=== PATIENT | female | born 1990 | race Caucasian/White ===

== ENCOUNTER 2018-04-16 23:58 | Emergency (ER) | payer OTHER ==
[~2018-04-16] VITALS: Ht 165.1 cm; Wt 80.7 kg
[~2018-04-16 23:58] MED LIST: BIRTH CONTROL; CEPH500 PO; CITA20 PO; CYCL10 PO; Cleocin HCl150 MG PO; HYDACE5 PO; NAPR375 PO; Percocet 5-3251 EACH PO
[2018-04-17] MEDS ORDERED: AMIT75 PO (00:14)
[2018-04-17 02:25] LABS: Alanine Aminotransfer (ALT/SGP 21 U/L (12-78); Albumin, Blood 3.6 g/dL (3.4-5.0); Albumin/Globulin Ratio 0.9 (0.8-1.8); Alk Phos 65 U/L (50-136); Anion Gap 7 mmol/L (6-16); Aspartate Aminotrans (AST/SGOT 17 U/L (12-37); Bilirubin, Total 0.1 mg/dL (0.1-1.0); Blood Urea Nitrogen 10 mg/dL (8-24); Bun/Creatinine Ratio 13.3 (12.0-20.0); CO2, Blood 25 mmol/L (21-32); Calcium, Blood 8.6 mg/dL (8.5-10.1); Chloride, Blood 106 mmol/L (98-108); Creatinine, Blood 0.75 mg/dL (0.40-1.00); Globulin, Blood 4.1 g/dL (2.2-4.0); Glomerular Filtration Rate >60 (60-); Glucose, Blood 112 mg/dL (70-99); Potassium, Blood 3.5 mmol/L (3.5-5.5); Sodium, Blood 138 mmol/L (136-145); Total Protein, Blood 7.7 g/dL (6.4-8.2); Troponin I <0.015 ng/mL (0.000-0.040)
[2018-04-17 02:32] LABS: BASOPHILS ABSOLUTE AUTO 0.04 K/mm3 (0.00-0.23); BASOPHILS PERCENT AUTO 1 % (0-2); EOSINOPHILS ABSOLUTE AUTO 0.02 K/mm3 (0.00-0.68); EOSINOPHILS PERCENT AUTO 0 % (0-6); Hematocrit 37.4 % (33.0-51.0); Hemoglobin 11.5 g/dL (11.5-16.0); IMMATURE GRAN ABSOLUTE AUTO 0.03 K/mm3 (0.00-0.10); IMMATURE GRAN PERCENT AUTO 1 % (0-1); LYMPHOCYTES ABSOLUTE AUTO 0.53 K/mm3 (0.84-5.20); LYMPHOCYTES PERCENT AUTO 10 % (21-46); MONOCYTES ABSOLUTE AUTO 0.72 K/mm3 (0.16-1.47); MONOCYTES PERCENT AUTO 14 % (4-13); Mean Corpuscular HGB 25.7 pg (26.0-34.0); Mean Corpuscular HGB Conc 30.7 g/dL (31.5-36.5); Mean Corpuscular Volume 84 fL (80-100); Mean Platelet Volume 10.6 fL (9.1-12.4); NEUTROPHILS ABSOLUTE AUTO 4.01 K/mm3 (1.96-9.15); NEUTROPHILS PERCENT AUTO 75 % (41-73); Platelet Count 291 K/mm3 (150-400); RDW Coefficient Variation 16.1 % (11.7-14.2); RDW Standard Deviation 49.4 fL (35.1-46.3); Red Blood Cell Count 4.47 M/mm3 (3.80-5.20); White Blood Cell Count 5.35 K/mm3 (4.00-11.30)
== END 2018-04-17 03:30 | disposition home or self-care (01) ==
LOC: ER 23:58
PROVIDERS: Emergency Medicine
DX: R00.2 Palpitations (principal); Z88.0 Allergy status to penicillin; Z88.2 Allergy status to sulfonamides; Z88.1 Allergy status to other antibiotic agents; Z88.8 Allergy status to other drugs, medicaments and biological substances; Z79.899 Other long term (current) drug therapy
CPT/HCPCS: 36415; 71046; 80053; 84484; 85025; 85379; 93005; 93010; 99285-25

== ENCOUNTER 2018-04-21 10:31 | Emergency (ER) | payer OTHER ==
[~2018-04-21] VITALS: Ht 165.1 cm; Wt 80.7 kg
[~2018-04-21 10:31] MED LIST changes: +AMIT75 PO
== END 2018-04-21 11:50 | disposition home or self-care (01) ==
LOC: ER 10:31
DX: J02.9 Acute pharyngitis, unspecified (principal); Z88.2 Allergy status to sulfonamides; Z88.0 Allergy status to penicillin; Z88.1 Allergy status to other antibiotic agents; Z88.8 Allergy status to other drugs, medicaments and biological substances; Z79.899 Other long term (current) drug therapy
CPT/HCPCS: 87081; 87430; 96374; 99283-25; J1100

== ENCOUNTER 2023-07-24 06:33 | Day surgery (SDC) | payer OTHER ==
[~2023-07-24] VITALS: Ht 165.1 cm; Wt 79.6 kg
[2023-07-24] VITALS (17 sets, daily range): BP systolic 106–146; BP diastolic 73–97
[~2023-07-24 06:33] MED LIST changes: +Clindamycin 600mg in D5W 50 ML IV SCH; +Lactated Ringer's 1,000 ML IV SCH; +LevoFLOXacin 500MG/D5W 100ML 100 ML IV SCH
[2023-07-24] MEDS ORDERED: SERT100 PO (07:05)
[2023-07-24] MEDS ORDERED: BUPROPION XL450 MG PO (07:05)
[2023-07-24] MEDS ORDERED: Lidocaine HCl 2% 20 ML MDV ONE (07:24)
[2023-07-24] MEDS ORDERED: propofoL 20 ML IV ONE (07:24)
[2023-07-24] MEDS ORDERED: FentaNYL Citrate 50 MCG/ML 2 ML Injection ONE ×3 (07:25→10:32)
[2023-07-24] MEDS ORDERED: Rocuronium Bromide 10 MG/ML 5ML Injection IV ONE ×3 (07:26→10:34)
[2023-07-24] MEDS ORDERED: Lidocaine 2%-Epineph 1:200000 20 ML SDV ONE (07:30)
[2023-07-24] MEDS ORDERED: Lidocaine HCl 1% 5 ML SYR INJ ONE (07:35)
[2023-07-24] MEDS ORDERED: FentaNYL Citrate 50 MCG/ML 2 ML Injection IV PRN ×3 (07:35→10:20)
[2023-07-24] MEDS ORDERED: Midazolam HCl 1MG / ML 2ML Vial IV ONE (07:35)
[2023-07-24] MEDS ORDERED: HYDROmorphone HCl/Pf 1MG SYR IV PRN (07:40)
[2023-07-24] MEDS ORDERED: Metoclopramide HCl 5MG / ML 2ML Vial IV PRN (07:40)
[2023-07-24] MEDS ORDERED: Scopolamine Hydrobromide Patch TOP ONE (07:45)
[2023-07-24] MEDS ORDERED: Scopolamine Hydrobromide Patch ONE (07:54)
--- NOTE | 2023-07-24 07:59 | NUR ---
0645 AMBULATE TO [facility] CONFIRMED SURGERY AND SURGEON. LUNGS CLEAR. PRE OP TEACHING DONE, FAMILY AT BED SIDE
[2023-07-24] MEDS ORDERED: Ondansetron HCl 2 MG / ML 2ML Vial ONE (08:22)
[2023-07-24] MEDS ORDERED: Dexamethasone Sod Phos 10 MG/ML 1ML VIAL ONE (08:22)
[2023-07-24] MEDS ORDERED: Metoclopramide HCl 5MG / ML 2ML Vial ONE (08:29)
[2023-07-24] MEDS ORDERED: Sugammadex Sodium 200 MG/2ML SDV (100 MG/ML) ONE (09:38)
[2023-07-24] MEDS ORDERED: Ketorolac Tromethamine 30mg Vial ONE (09:42)
[2023-07-24] MEDS ORDERED: Flumazenil 0.1 MG / ML 5ML Vial ONE (09:58)
[2023-07-24] MEDS ORDERED: Acetaminophen 325 MG TABLET PO PRN (10:20)
[2023-07-24] MEDS ORDERED: DiphenhydrAMINE HCL 25 MG Cap PO PRN (10:20)
[2023-07-24] MEDS ORDERED: Simethicone 80 MG Chew PO PRN (10:20)
[2023-07-24] MEDS ORDERED: Ondansetron HCl 2 MG / ML 2ML Vial IV PRN (10:20)
[2023-07-24] MEDS ORDERED: OxyCODONE HCL 5 MG TAB PO PRN (10:20)
[2023-07-24] MEDS ORDERED: Lactated Ringer's 1,000 ML IV SCH (10:25)
[2023-07-24] MEDS ORDERED: Ibuprofen 400 MG Tab PO PRN (10:25)
[2023-07-24] MEDS ORDERED: Ketorolac Tromethamine 30mg Vial IV SCH ×2 (12:00→15:30)
[2023-07-24 13:11] LABS: BASOPHILS ABSOLUTE AUTO 0.03 K/mm3 (0.00-0.23); BASOPHILS PERCENT AUTO 0 % (0-2); EOSINOPHILS ABSOLUTE AUTO 0.01 K/mm3 (0.00-0.68); EOSINOPHILS PERCENT AUTO 0 % (0-6); Hematocrit 34.6 % (33.0-51.0); Hemoglobin 11.6 g/dL (11.5-16.0); IMMATURE GRAN ABSOLUTE AUTO 0.05 K/mm3 (0.00-0.10); IMMATURE GRAN PERCENT AUTO 0 % (0-1); LYMPHOCYTES ABSOLUTE AUTO 0.64 K/mm3 (0.84-5.20); LYMPHOCYTES PERCENT AUTO 5 % (21-46); MONOCYTES ABSOLUTE AUTO 0.42 K/mm3 (0.16-1.47); MONOCYTES PERCENT AUTO 3 % (4-13); Mean Corpuscular HGB 30.4 pg (26.0-34.0); Mean Corpuscular HGB Conc 33.5 g/dL (31.5-36.5); Mean Corpuscular Volume 91 fL (80-100); Mean Platelet Volume 9.5 fL (9.1-12.4); NEUTROPHILS ABSOLUTE AUTO 12.41 K/mm3 (1.96-9.15); NEUTROPHILS PERCENT AUTO 92 % (41-73); Platelet Count 246 K/mm3 (150-400); RDW Coefficient Variation 12.9 % (11.7-14.2); Red Blood Cell Count 3.82 M/mm3 (3.80-5.20); White Blood Cell Count 13.56 K/mm3 (4.00-11.30)
--- NOTE | 2023-07-24 13:41 | NUR ---
Pt. is resting in her room but responds when I enter. Pt. displays evidence of still recovering from her procedure. Pts. hanna' and mom are at bedside. Facilitate a short life review and consider matters of family and crescencio. Pt. displays evidence of awareness and engagement though she still displays evidence of discomfort. Prayed for Pt. Pt. and family verbalized gratitude for the spiritual care visit.
--- NOTE | 2023-07-24 14:08 | NUR ---
PT IS CONTINUING TO REPORT NAUSEA AND UNABLE TO TOLERATE MORE THAN SIPS OF WATER. MESSAGE LEFT FOR DR. LOUISE. WAITING FOR RETURN CALL.
[2023-07-24] MEDS ORDERED: Percocet 5-3251 EACH PO (15:06)
[2023-07-24] MEDS ORDERED: IBU800 MG PO (15:07)
--- NOTE | 2023-07-24 20:25 | NUR ---
SHIFT SUMMARY PT IS POD#0 FROM [facility] WITH DR. LOUISE. PAIN MANAGED WITH PO AND IV PAIN MEDICATION. PT HAS BEEN NAUSEATED T/O THE DAY AND ONLY ABLE TO SIP CLEAR LIQUIDS, EAT SOME JELLO AND SOME SALTINE CRACKERS. PT HAS ALSO BEEN DIZZY, SHE REPORTS CHRONIC DIZZINESS BUT STATES IT IS WORSE POST-OP. PT BECAME VERY DIZZY AND NAUSEATED AFTER USING THE BATHROOM THIS EVENING, VSS AFTER PT WAS ASSISTED BACK TO BED. PT WAS EDUCATED TO CALL FOR ASSISTANCE WHEN OOB. BEDSIDE REPORT GIVEN TO HA HORVATH.
[2023-07-25] VITALS (7 sets, daily range): BP systolic 110–126; BP diastolic 66–82
--- NOTE | 2023-07-25 04:37 | NUR ---
SHIFT SUMMARY POD1 [facility] PT ABLE TO REST DURING THE SHIFT. PAIN MANAGED PER EMAR. PT ABLE TO GET UP TO THE BATHROOM AND VOID. PT'S PERIPAD WAS CHANGED DURING THE NIGHT SCANT AMOUNT OF BLOOD ON THE PAD. BAND AIDS TO LAP SITES HAVE LIGHT DRAINAGE ON THEM, WILL REMOVE THIS AM. VSS. PT TOLERTAING WATER AND CRACKERS. NO OTHER CONCERNS AT THIS TIME, CALL LIGHT WITHIN REACH
[2023-07-25] MEDS ORDERED: ONDA4ODT MM (12:00)
--- NOTE | 2023-07-25 12:18 | NUR ---
PT'S HR ELEVATED 110 TO 127 WHILE PT IS AT REST. PT DENIES SOB AND CHEST PAIN. DR. LOUISE NOTIFIED. CBC ORDERED.
[2023-07-25 12:36] LABS: Hematocrit 25.2 % (33.0-51.0); Hemoglobin 8.6 g/dL (11.5-16.0); Mean Corpuscular HGB Conc 34.1 g/dL (31.5-36.5); Mean Corpuscular Volume 91 fL (80-100); Mean Platelet Volume 9.7 fL (9.1-12.4); Platelet Count 264 K/mm3 (150-400); RDW Coefficient Variation 13.2 % (11.7-14.2); RDW Standard Deviation 43.7 fL (35.1-46.3); Red Blood Cell Count 2.77 M/mm3 (3.80-5.20); White Blood Cell Count 9.74 K/mm3 (4.00-11.30)
--- NOTE | 2023-07-25 14:03 | NUR ---
DR. LOUISE NOTIFIED OF DROP IN H&H OVERNIGHT. SHE WAS NOTIFIED THAT HR REMAINS ELEVATED. PLAN FOR PT TO REMAIN IN HOSPITAL AT THIS TIME. H&H LAB ORDERED 3 HOURS FROM NOW.
[2023-07-25 17:01] LABS: Hematocrit 24.8 % (33.0-51.0); Hemoglobin 8.3 g/dL (11.5-16.0)
--- NOTE | 2023-07-25 17:17 | NUR ---
DR. LOUISE NOTIFIED OF H&H RESULTS. DISCHARGE CANCELED BY DR. LOUISE. PER DR. LOUISE OK TO RESTART PT'S HOME MEDICATIONS AT HOME DOSAGES. CLARIFIED HOME DOSAGES WITH PT. SHE STATES SHE TAKES WELLBUTRIN 450MG PO DAILY NOT 400MG. WILL RESTART HOME MEDICATIONS ORDERED BY DR. LOUISE.
--- NOTE | 2023-07-25 17:27 | NUR ---
Pt. is awake and welcomes my visit. Pts. Mother and Fiance' are at bedside. Facilitate an update of Pts. progress, and considered personal details regarding the Pt. and fiance' wedding that is coming up. Pt. displayed evidence of an uplifted spirit, and family displayed evidence of being very supportive. Pt. verbalized waiting for lab results, and this forming operator sought to normalize the Pt. experience. Prayed with Pt. Pt. and family verbalized gratitude for the spiritual care visit.
--- NOTE | 2023-07-25 17:29 | NUR ---
HOME MEDICATIONS PER PT SHE TAKES WELLBUTRIN XL 450MG PO DAILY. OUR PHARMACY CARRIES WELLBUTRIN SR NOT XL. PER JESU (PHARMACIST) THE EQUIVALENT DOSING FOR WELLBUTRIN XL IS WELBUTRIN SR 150MG PO TID. ORDER PLACED PER DR. LOUISE.
[2023-07-25] MEDS ORDERED: Sertraline HCl 100 MG Tab PO SCH (17:30)
--- NOTE | 2023-07-25 17:38 | NUR ---
SHIFT SUMMARY PT IS POD#1 FROM [facility] WITH DR. LOUISE. PLAN WAS FOR PT TO DISCHARGE HOME TODAY HOWEVER HER HR INCREASED TO 110-127. DR. LOUISE WAS NOTIFIED, LABS ORDERED AND SHOWED DROP IN H&H. REPEAT LABS CONTINUED TO SHOW DECLINE IN H&H. VSS, PT HAS MILD TACHYCARDIA. PLAN FOR REPEAT LABS T/O THE NIGHT. PT IS A 1 PERSON ASSIST WITH GAIT BELT WHEN OOB. PT IS TOLERATING SMALL AMOUNTS OF PO. PAIN MANAGED WITH TYLENOL AND ADVIL. FAMILY HAS BEEN PRESENT FOR SUPPORT.
[2023-07-25] MEDS ORDERED: buPROPion HCL 150 MG TAB.SR.12H PO SCH (21:00)
[2023-07-25 23:39] LABS: Hematocrit 21.1 % (33.0-51.0); Hemoglobin 7.1 g/dL (11.5-16.0); Mean Corpuscular HGB 30.7 pg (26.0-34.0); Mean Corpuscular HGB Conc 33.6 g/dL (31.5-36.5); Mean Corpuscular Volume 91 fL (80-100); Mean Platelet Volume 9.6 fL (9.1-12.4); Platelet Count 190 K/mm3 (150-400); RDW Coefficient Variation 13.2 % (11.7-14.2); RDW Standard Deviation 43.9 fL (35.1-46.3); Red Blood Cell Count 2.31 M/mm3 (3.80-5.20); White Blood Cell Count 7.47 K/mm3 (4.00-11.30)
[2023-07-26] VITALS (7 sets, daily range): BP systolic 109–124; BP diastolic 67–88
[2023-07-26] MEDS ORDERED: Lactated Ringer's 1,000 ML IV SCH (00:05)
[2023-07-26 01:57] LABS: Hematocrit 21.1 % (33.0-51.0); Hemoglobin 7.1 g/dL (11.5-16.0); Mean Corpuscular HGB 30.7 pg (26.0-34.0); Mean Corpuscular HGB Conc 33.6 g/dL (31.5-36.5); Mean Corpuscular Volume 91 fL (80-100); Mean Platelet Volume 9.5 fL (9.1-12.4); Platelet Count 179 K/mm3 (150-400); RDW Coefficient Variation 13.2 % (11.7-14.2); RDW Standard Deviation 43.5 fL (35.1-46.3); Red Blood Cell Count 2.31 M/mm3 (3.80-5.20); White Blood Cell Count 7.24 K/mm3 (4.00-11.30)
--- NOTE | 2023-07-26 05:27 | NUR ---
SHIFT SUMMARY POD 2- [facility]. REPORTS 4-08/28 PAIN T/O ABD. MEDICATED 1x c IBUPROPHEN, PT STATES MIN RELIEF. LAP SITES c STERI STRIPS INTACT & W/O DRAINAGE. PT JOY PO, DENIES N/V. VOIDING CLEAR YELLOW URINE. HAS SCANT TO NO AMOUNT BLOOD ON MELCHOR PAD. HGB @0200 HAS TRENDED DOWN TO 7.1, DR LOUISE INFORMED. REPORTS MIN DIZZINESS UPON SITTING UP ON SIDE OF BED, STATES THAT IS BASELINE. LR INFUSING. CALL LIGHT IN REACH, WILL MONITOR.
[2023-07-26 05:30] LABS: Hematocrit 19.7 % (33.0-51.0); Hemoglobin 6.7 g/dL (11.5-16.0); Mean Corpuscular Volume 91 fL (80-100); Mean Platelet Volume 9.4 fL (9.1-12.4); Platelet Count 164 K/mm3 (150-400); RDW Coefficient Variation 13.2 % (11.7-14.2); RDW Standard Deviation 43.8 fL (35.1-46.3); Red Blood Cell Count 2.16 M/mm3 (3.80-5.20); White Blood Cell Count 6.74 K/mm3 (4.00-11.30)
[2023-07-26 09:15] LABS: Hematocrit 21.1 % (33.0-51.0); Mean Corpuscular HGB 30.7 pg (26.0-34.0); Mean Corpuscular HGB Conc 33.2 g/dL (31.5-36.5); Mean Corpuscular Volume 93 fL (80-100); Mean Platelet Volume 9.6 fL (9.1-12.4); Platelet Count 178 K/mm3 (150-400); RDW Coefficient Variation 13.3 % (11.7-14.2); RDW Standard Deviation 44.1 fL (35.1-46.3); Red Blood Cell Count 2.28 M/mm3 (3.80-5.20); White Blood Cell Count 6.86 K/mm3 (4.00-11.30)
[2023-07-26] MEDS ORDERED: NS 250 ML IV SCH (12:15)
[2023-07-26 17:07] LABS: Hematocrit 24.1 % (33.0-51.0); Hemoglobin 8.2 g/dL (11.5-16.0)
--- NOTE | 2023-07-26 19:07 | NUR ---
SHIFT SUMMARY PT POD 2 [facility]. LAP SITES X'S 3 C/D/I. NO VAGINAL BLEEDING T/O SHIFT. PT HGB IMPROVED TO 8.2 FOLLOWING ADMINISTRATION OF 1 UNIT PRBC. PT VSS. PLAN TO DC HOME TOMORROW.
--- NOTE | 2023-07-27 04:33 | NUR ---
SHIFT SUMMARY PT POST OP DAY 3 FROM [facility]. LAP SITES X3 C/D/I. NO VAGINAL BLEEDING DURING SHIFT. PT VSS. PLAN TO GO HOME TODAY. PT HAS NOT HAD A BM SINCE SURGERY. PT WAS EDUCATED ON AVOIDING STRAINING. PT RESTED WITH EYES CLOSED THROUGH SHIFT. ABDOMINAL BINDER IN PLACE TO HELP WITH PAIN. PT HAS DENIED PAIN THROUGHOUT SHIFT.
[2023-07-27 04:38] VITALS: BP 108/77
[2023-07-27 07:14] LABS: Hematocrit 24.8 % (33.0-51.0); Hemoglobin 8.4 g/dL (11.5-16.0)
[2023-07-27 07:54] VITALS: BP 117/86
== END 2023-07-27 10:37 | disposition home or self-care (01) ==
LOC: ORSCMMR 06:33 → ORD 08:00 → SURS 11:16 → ORSCMMR 07-27 09:33 → SURS 07-27 09:37 → ORSCMMR 07-27 09:44
PROVIDERS: Obstetrics & Gynecology
PROC: 0UT0FZZ Resection of Right Ovary, Via Natural or Artificial Opening With Percutaneous Endoscopic Assistance (ICD-10-PCS; principal; 2023-07-24 08:00)
PROC: 0UT7FZZ Resection of Bilateral Fallopian Tubes, Via Natural or Artificial Opening With Percutaneous Endoscopic Assistance (ICD-10-PCS; principal; 2023-07-24 08:00)
PROC: 0UT9FZZ Resection of Uterus, Via Natural or Artificial Opening With Percutaneous Endoscopic Assistance (ICD-10-PCS; principal; 2023-07-24 08:00)
DX: N92.0 Excessive and frequent menstruation with regular cycle (principal); R10.2 Pelvic and perineal pain; N80.03 Adenomyosis of the uterus; N72 Inflammatory disease of cervix uteri; N83.11 Corpus luteum cyst of right ovary; D25.9 Leiomyoma of uterus, unspecified; Z79.899 Other long term (current) drug therapy
CPT/HCPCS: 36415; 85014; 85018; 85025; 85027; 86850; 86900; 86901; 86923; 88307; 94762; A9270; J1100; J1885; J1956; J2250; J2405; J2704; J2765; J3010; J7120; P9016